=== PATIENT | female | born 1995 | race Caucasian/White ===

== ENCOUNTER 2020-12-04 18:38 | Emergency (ER) | payer OTHER, SELFPAY ==
[2020-12-04 18:55] VITALS: BP 114/79; PULSE 85; RESP 18; TEMP 36.8; O2SAT 97; BMI 26.4
--- NOTE | 2020-12-04 18:59 | XRR_ITS ---
PROCEDURE INFORMATION: Exam: XR Right Ribs with PA Chest Exam date and time: 12/04/2020 7:09 PM Age: 24 years old Clinical indication: Pain; Other: Right ribs TECHNIQUE: Imaging protocol: XR Right ribs with PA chest. Views: 3 views COMPARISON: No relevant prior studies available. FINDINGS: Lungs: Unremarkable. No consolidation. Pleural spaces: Unremarkable. No pleural effusion. No pneumothorax. Heart/Mediastinum: Unremarkable. No cardiomegaly. Bones/joints: Unremarkable. XR/XR ribs RT mn 3V w CXR1V [id number] IMPRESSION: No acute findings.
--- NOTE | 2020-12-04 19:43 | US_ITS ---
WS: [id number] RIGHT UPPER QUADRANT ULTRASOUND HISTORY: Abdominal pain. COMPARISON: None available. Liver: 14.2 cm in length. Normal size liver. No bile duct dilatation or mass. Gallbladder: Normally distended gallbladder with no stones or wall thickening. CBD: 0.2 cm Pancreas: Not visualized. Right kidney: 11.1 cm in length. Normal size kidney. There is very mild dilatation of the renal pelvi s. No calyceal dilatation. No mass. Aorta and IVC: Unremarkable abdominal aorta and IVC. No ascites. US/US gall bladder [id number] IMPRESSION: 1. Normal gallbladder. 2. Very mild RIGHT hydronephrosis. Correlate for possible minimal obstruction secondary to a ureteral stone.
--- NOTE | 2020-12-04 19:45 | W.ED.ABDPA2 ---
HPI - Abdominal Pain General: Chief Complaint: Abdominal Pain Stated Complaint: Pain Underneath R. Rib Area Time Seen by Provider: 12/04/20 19:21 Source: patient Mode of arrival: ambulatory Limitations: no limitations History of Present Illness: HPI narrative: 24-year-old female states that she is currently 17 weeks . She states that she is having right upper quadrant abdominal pain that is sharp in nature. States is also in the epigastric region as well. States this happened after eating today around 3. States pain is currently 5 out of 10. Denies any shortness of breath. She denies any vaginal bleeding or vaginal discharge. This is her first . She has had a appendectomy in the past and still has her gallbladder. Associated Symptoms: Denies chills, dysuria and fever(s) Review of Systems Const: Denies: fever(s), chills, body aches or change in appetite Eyes: Denies: blurry vision or eye discomfort ENMT: Denies: throat pain or dental pain Card: Denies: chest pain Resp: Denies: dyspnea GI: Reports: abdominal pain : Denies: dysuria Musc: Denies: neck pain or back pain Skin/Breast: Denies: rash Neuro: Denies: headache(s) Psych: Denies: depression Rolly/Lymph: Denies: easy bruising All/Imm: Denies: urticaria Physical Exam Const: COMMON NORMALS: no acute distress, patient oriented x3 and healthy appearing HENMT: COMMON NORMALS: normocephalic and atraumatic HEAD & SCALP: normocephalic and atraumatic Eye: COMMON NORMALS: Equal, round and reactive pupils present and EOMs intact bilaterally PUPIL: Yes Equal, round and reactive pupils present Neck/C-Spine: COMMON NORMALS: full ROM and supple Chest: COMMONS NORMALS: normal inspection of the chest and normal palpation of entire chest wall Resp: COMMON NORMALS: normal respiratory effort, No retractions, No use of accessory muscles and clear to auscultation bilaterally AUSCULTATION: clear to auscultation bilaterally Cardio: COMMON NORMALS: regular rate, regular rhythm and No murmurs present (Cardio) RATE: regular rate RHYTHM: regular rhythm GI: COMMON NORMALS: Normal to inspection, nondistended, normoactive bowel sounds present, Soft to palpation, non-tender and no masses PALPATION: Yes Soft to palpation Extremity: COMMON NORMALS: normal to inspection and full ROM Neuro: COMMON NORMALS: patient oriented x3, moves all extremities and no focal motor deficits Psych: COMMON NORMALS: mental status grossly normal, Normal thought process present and cooperative THOUGHT PROCESS: Normal thought process present Skin: COMMON NORMALS: no rashes or lesions noted and no wounds GENERAL SKIN EXAM: no rashes or lesions noted Course Vital Signs: Vital signs: Vital Signs Temperature 98.3 F 12/04/20 18:55 Pulse Rate 76 12/04/20 20:10 Respiratory Rate 18 12/04/20 20:10 Blood Pressure 113/52 12/04/20 20:10 Pulse Oximetry 96 12/04/20 20:10 MDM - Abdominal Pain MDM Narrative: Medical decision making narrative: Patient presents with abdominal pain likely gastritis. Gallbladder ultrasound here is normal and her blood work is all normal. I did a bedside ultrasound of her lower abdomen showed an IUP consistent with dates with heart rate of 146. She feel improved after Reglan will place her on Reglan at home. She is to follow-up with her OB and return if worsening. She understands agrees to plan. Lab Data: Labs: Lab Results 12/04/20 12/04/20 Range/Units 19:52 19:52 WBC 13.5 H (4.0-10.0) 10^3/ uL RBC 4.36 (4.1-5.3) 10^6/u L Hgb 13.3 (11.5-15.3) g/dL Hct 39.7 (37.0-47.0) % MCV 91.1 (81-99) fL MCH 30.5 (28.0-34.0) pg MCHC 33.5 (30.0-36.0) g/dL RDW 13.5 (12.1-15.1) % Plt Count 258 (130-400) 10^3/c mm MPV 10.9 H (7.4-10.4) fL Neut % (Auto) 67.7 % Lymph % (Auto) 22.2 % [place] % (Auto) 7.9 % Eos % (Auto) 1.1 % Baso % (Auto) 0.4 % Neut # (Auto) 9.11 H (1.8-7.7) 10^3/u L Lymph # (Auto) 3.0 (0.8-4.8) 10^3/u L [place] # (Auto) 1.1 H (0.2-0.9) 10^3/u L Eos # (Auto) 0.2 (0.0-0.8) 10^3/u L Baso # (Auto) 0.1 (0.0-0.1) 10^3/u L Nucleated RBC % (a uto) 0 % Nucleated RBCs # 0.0 /100WBC Sodium 135 L (136-145) mmol/L Potassium 3.6 (3.5-5.1) mmol/L Chloride 102 (98-107) mmol/L Carbon Dioxide 22 (22-29) mmol/L Anion Gap 14.6 (5-19) BUN 7 (6-20) mg/dL Creatinine 0.4 L (0.5-0.9) mg/dL GFR Calculation 197.8 H (90-130) mL/min Glucose 93 (65-115) mg/dL Calculated Osmolal ity 278 L (285-295) mOsm/k g Calcium 8.3 L (8.5-10.5) mg/dL Total Bilirubin 0.2 (0.15-1.2) mg/dL AST 34 H (0-32) U/L ALT 73 H (0-33) U/L Alkaline Phosphata se 59 (35-105) IU/L Total Protein 6.7 (6.6-8.7) g/dL Albumin 3.9 (3.5-5.2) g/dL Globulin 2.8 (1.3-4.6) g/dL Lipase 28 (13-60) U/L Imaging Data ^: US: Attestation: I personally reviewed and interpreted this imaging study as follows: My impression: No acute abnormality Discharge Plan Discharge Patient Disposition: Home Clinical Impression: Abdominal pain affecting Condition: Stable Prescriptions: New Reglan 10 mg tablet 10 mg PO Q6H PRN (Reason: nausea and vomiting) Qty: 20 RF: 0 No Action 1 tab PO DAILY RF: 0 Discharge Orders: Discharge ED (Routine); Ordered 12/04/20 Ordered By: Brenda Fuentes Referrals: Dacia Gregg MD [Primary Care Provider] - 1-3 days Discharge Diet: Advance as tolerated Discharge Activity: Resume usual activity Patient Instructions: Abdominal Pain (ED) Coding Level of Care Code ED Low Voltage Electrician for Chg Fwd Exam Comprehensive
[2020-12-04 19:57] LABS: Basophils # 0.1 10^3/uL (0.0-0.1); Basophils % 0.4 %; Eosinophils # 0.2 10^3/uL (0.0-0.8); Eosinophils % 1.1 %; Hematocrit 39.7 % (37.0-47.0); Hemoglobin 13.3 g/dL (11.5-15.3); Lymphocytes % 22.2 %; Mean Corpuscular HGB Conc 33.5 g/dL (30.0-36.0); Mean Corpuscular Hemoglobin 30.5 pg (28.0-34.0); Mean Corpuscular Volume 91.1 fL (81-99); Mean Platelet Volume 10.9 fL (7.4-10.4); Monocytes # 1.1 10^3/uL (0.2-0.9); Monocytes % 7.9 %; Neutrophils # 9.11 10^3/uL (1.8-7.7); Neutrophils % 67.7 %; Nucleated Red Blood Cells % 0 %; Platelet Count 258 10^3/cmm (130-400); Red Blood Count 4.36 10^6/uL (4.1-5.3); Red Cell Distribution Width 13.5 % (12.1-15.1); White Blood Count 13.5 10^3/uL (4.0-10.0)
[2020-12-04] MEDS: sodium chloride 0.9% 1,000 ML 999 ML IV (19:57)
[2020-12-04] MEDS: metoclopramide 5 mg/mL SDV 2 mL 10 MG IVP (19:59)
[2020-12-04] MEDS: diphenhydrAMINE 50 mg/mL SDV 1mL IVP (20:09)
[2020-12-04 20:10] VITALS: BP 113/52; PULSE 76; RESP 18; O2SAT 96
[2020-12-04 20:17] LABS: Alanine Aminotransferase 73 U/L (0-33); Albumin Level 3.9 g/dL (3.5-5.2); Alkaline Phosphatase 59 IU/L (35-105); Anion Gap 14.6 (5-19); Aspartate Amino Transferase 34 U/L (0-32); Blood Urea Nitrogen 7 mg/dL (6-20); Calcium 8.3 mg/dL (8.5-10.5); Carbon Dioxide 22 mmol/L (22-29); Chloride 102 mmol/L (98-107); Globulin 2.8 g/dL (1.3-4.6); Glomerular Filtration Rate 197.8 mL/min (90-130); Glucose 93 mg/dL (65-115); Lipase 28 U/L (13-60); Osmolality Calculated 278 mOsm/kg (285-295); Potassium 3.6 mmol/L (3.5-5.1); Sodium 135 mmol/L (136-145); Total Bilirubin 0.2 mg/dL (0.15-1.2); Total Protein 6.7 g/dL (6.6-8.7)
[2020-12-04 21:01] VITALS: BP 106/61; PULSE 80; RESP 17; O2SAT 98
== END 2020-12-04 21:01 | disposition home or self-care (01) ==
PROVIDERS: Emergency Provider Emergency Medicine; PCP Family Medicine
DX: O26.892 Other specified pregnancy related conditions, second trimester (principal); R10.9 Unspecified abdominal pain; Z3A.17 17 weeks gestation of pregnancy
CPT/HCPCS: 71101; 76705; 80053; 83690; 85025; 96361; 96374; 96375; 99283; J1200; J2765; J7030

== ENCOUNTER 2021-04-22 20:06 | Inpatient (IN) | payer OTHER, SELFPAY ==
[2021-04-22] VITALS (7 sets, daily range): BP systolic 122–141; BP diastolic 60–92; PULSE 68–95; RESP 17–18; BMI 33.3
[2021-04-22 18:46] LABS: Nitrazine Paper, PH Negative
[2021-04-22 20:26] LABS: Basophils % 0.2 %; Eosinophils # 0.1 10^3/uL (0.0-0.8); Eosinophils % 0.9 %; Hematocrit 36.8 % (37.0-47.0); Hemoglobin 12.1 g/dL (11.5-15.3); Lymphocytes # 2.6 10^3/uL (0.8-4.8); Lymphocytes % 18.7 %; Mean Corpuscular HGB Conc 32.9 g/dL (30.0-36.0); Mean Corpuscular Hemoglobin 30.3 pg (28.0-34.0); Mean Platelet Volume 12.2 fL (7.4-10.4); Monocytes # 1.2 10^3/uL (0.2-0.9); Monocytes % 8.4 %; Neutrophils # 9.96 10^3/uL (1.8-7.7); Neutrophils % 70.6 %; Nucleated Red Blood Cells % 0 %; Platelet Count 224 10^3/cmm (130-400); Red Cell Distribution Width 13.6 % (12.1-15.1); White Blood Count 14.1 10^3/uL (4.0-10.0)
[2021-04-23] VITALS (46 sets, daily range): BP systolic 98–140; BP diastolic 42–94; PULSE 49–110; RESP 17; TEMP 36.6
[2021-04-23] MEDS: dextrose 5%-lactated ringers 1,000 ML 125 ML IV ×2 (06:06→13:52)
[2021-04-23] MEDS: acetaminophen 325 mg Tablet 650 MG PO ×2 (06:12→19:04)
[2021-04-23] MEDS: oxytocin 30 UNIT/500 ML BAG IV (08:05)
[2021-04-23] MEDS: fentaNYL 50 mcg/mL INJ 2mL IVP (13:20)
[2021-04-23] MEDS: lidocaine 2% INJ 20 mL INJECTION ×2 (16:00)
--- NOTE | 2021-04-23 16:14 | PM.OPHPUD ---
Labor & Delivery H&P Update Date of Procedure: April 23, 2021 Date H&P Performed: 04/22/21 Admission Diagnosis: Related Problem List Diagnoses (1) Active labor at term:
--- NOTE | 2021-04-23 16:15 | P.PCNOB_ITS ---
Delivery Note: Date of delivery: April 23, 2021 Delivery: This is a 25-year-old G1, P0 at 37 weeks 3 days gestation who presented to labor and delivery in active labor. She had been having regular contractions overnight. When she was checked in clinic she was 3-4/70% effaced with a bulging bag of water. When she presented to labor and delivery 7 hours later she was a good 4/70% effaced/-3 station. She was rechecked after about 1 to 2 hours and was noted to be 4-5 cm 75% effaced and -3 station. She was admitted for expectant management. She declined an epidural for pain management. She progressed very slowly overnight and her labor seemed to stall out around 6 cm 80% effacement. She was then started on Pitocin to help augment labor. She underwent artificial rupture of membranes with clear fluid. She had a normal spontaneous vaginal delivery of a viable female infant weight 6 pounds 3 ounces, 2810 g over an intact perineum. The was suctioned at delivery and placed on the mother's chest. The cord was clamped and cut. Apgars were 8 and 9. The placenta was then delivered grossly intact and normal to inspection. There was a first-degree perineal laceration that was sutured using 3-0 chromic. Mother and infant were doing well after delivery. Estimated blood loss 275 mL. A&P Assessment and plan (1) (normal spontaneous vaginal delivery): Status: Acute Coding Level of Care Code Acute Cloth Napping Supervisor for Chg Fwd Diagnoses (normal spontaneous vaginal delivery) O80
[2021-04-23] MEDS: ketorolac 30 mg/mL INJ IVP (16:23)
[2021-04-23] MEDS: benzocaine-menthol 78 gm Canister 1 SPRAY TOPICAL (19:05)
[2021-04-23] MEDS: lanolin oint 7 gm 1 APPLIC TOPICAL (19:05)
[2021-04-23] MEDS: ibuprofen 800 mg tablet PO (21:26)
[2021-04-24] MEDS: acetaminophen 325 mg Tablet 650 MG PO (01:15)
[2021-04-24 01:59] VITALS: BP 106/55; PULSE 72; TEMP 36.3
[2021-04-24 04:14] LABS: Hematocrit 31.7 % (37.0-47.0); Hemoglobin 10.3 g/dL (11.5-15.3); Mean Corpuscular HGB Conc 32.5 g/dL (30.0-36.0); Mean Corpuscular Hemoglobin 30.1 pg (28.0-34.0); Mean Corpuscular Volume 92.7 fl (81-99); Mean Platelet Volume 11.6 fL (7.4-10.4); Platelet Count 199 10^3/cmm (130-400); Red Blood Count 3.42 10^6/uL (4.1-5.3); Red Cell Distribution Width 13.7 % (12.1-15.1); White Blood Count 15.7 10^3/uL (4.0-10.0)
[2021-04-24 05:03] VITALS: BP 119/57; PULSE 85; TEMP 36.2
[2021-04-24] MEDS: ibuprofen 800 mg tablet PO ×2 (08:29→14:06)
[2021-04-24] MEDS: docusate sodium 100 mg Capsule PO (08:29)
[2021-04-24] MEDS: prenatal vitamin Capsule 1 CAP PO (08:29)
[2021-04-24 10:08] VITALS: BP 111/62; PULSE 76
--- NOTE | 2021-04-24 16:38 | PM.OBGYDC ---
Discharge Providers CUSTOMS PATROL OFFICER Date of Admission: 04/22/21 20:06 Date of Discharge: 04/24/21 Attending Provider at Admission: Dacia Gregg MD Attending Provider at Discharge: Dacia Gregg MD Primary Care Provider: Dacia Gregg MD Diagnoses at Discharge Discharge Diagnosis (1) (normal spontaneous vaginal delivery): Status: Acute Reason for Visit Reason for Visit: vaginal bleeding Hospital Course Hospital Course <del>The</del> <del>patient</del> <del>did</del> <del>well</del> <del>.</del> <del>She</del> <del>was</del> <del>ambulating,</del> <del>tolerating</del> <del>a</del> <del>regular</del> <del>diet,</del> <del>had</del> <del>good</del> <del>pain</del> <del>control.</del> <del>Her</del> <del>vaginal</del> <del>bleeding</del> <del>was</del> <del>average.</del> <del>She</del> <del>was</del> <del>eager</del> <del>to</del> <del>be</del> <del>discharged</del> <del>home.</del> Information Peripartum Data: Delivery Method: Vaginal Physical Exam Narrative: EXAM NARRATIVE: Alert and oriented, no acute distress. Heart regular rate and rhythm, lungs clear to auscultation bilaterally. Abdomen soft with fundus firm and nontender. 2+ nonpitting edema no calf tenderness. Discharge Data Data Completed and Pending: Labs from last 24 hours 04/24/21 04:08 WBC 15.7 H RBC 3.42 L Hgb 10.3 L Hct 31.7 L MCV 92.7 MCH 30.1 MCHC 32.5 RDW 13.7 Plt Count 199 MPV 11.6 H Vitals: Last Vital Signs Temp 97.2 F L 04/24/21 05:03 Pulse 76 04/24/21 10:08 Resp 17 04/23/21 18:22 BP 111/62 04/24/21 10:08 Discharge Plan Discharge Patient Disposition: Home Condition: Stable Prescriptions: No Action 1 tab PO DAILY RF: 0 Reglan 10 mg tablet 10 mg PO Q6H PRN (Reason: nausea and vomiting) Qty: 20 RF: 0 Discharge Orders: Discharge Order (Routine); Ordered 04/24/21 Ordered By: Dacia Gregg Referrals: Dacia Gregg MD [Primary Care Provider] - 1 month Discharge Diet: Usual diet Discharge Activity: Limit activity as instructed Patient Instructions: Perineal Care (DC), Vaginal Delivery (DC), Bleeding (DC), OB Discharge Report, OB Food/Drug Interaction Guide, Opioid Safety, OB Proud Parent Packet, OB Vaginal Deliveries, Abnormal Bleeding, Depression Discharge Attestations CUSTOMS PATROL OFFICER Time Spent in Discharge Care*: less than 30 min Coding Level of Care Code Acute Sinter Machine Operator for Chg Fwd Diagnoses (normal spontaneous vaginal delivery) O80
[2021-04-24 17:17] VITALS: BP 126/63; PULSE 101; TEMP 35.4
== END 2021-04-24 17:52 | disposition home or self-care (01) | DRG 807 ==
LOC: OPOB 20:06 → OBGYN 20:06
PROVIDERS: Admitting Provider Family Medicine; PCP Family Medicine; Visit Provider Family Medicine
DX: O70.0 First degree perineal laceration during delivery (principal); Z37.0 Single live birth; Z3A.37 37 weeks gestation of pregnancy
CPT/HCPCS: 36415; 59025; 59409; 83986; 85025; 85027; 96374; 98960; 99211; J1885; J3010

== ENCOUNTER 2023-03-03 00:29 | Inpatient (IN) | payer OTHER, SELFPAY ==
[2023-03-02 22:30] VITALS: BP 125/72; PULSE 76
[2023-03-02 23:27] VITALS: RESP 16; BMI 33.3
[2023-03-03] VITALS (45 sets, daily range): BP systolic 85–142; BP diastolic 49–101; PULSE 63–90; RESP 16–18; TEMP 36.2–36.8; O2SAT 99
[2023-03-03 00:45] LABS: Basophils % 0.1 %; Eosinophils # 0.1 10^3/uL (0.0-0.8); Eosinophils % 0.5 %; Hematocrit 39.1 % (37.0-47.0); Hemoglobin 12.7 g/dL (11.5-15.3); Lymphocytes # 2.8 10^3/uL (0.8-4.8); Lymphocytes % 17.9 %; Mean Corpuscular HGB Conc 32.5 g/dL (30.0-36.0); Mean Corpuscular Hemoglobin 29.4 pg (28.0-34.0); Mean Corpuscular Volume 90.5 fl (81-99); Mean Platelet Volume 11.6 fL (7.4-10.4); Monocytes % 6.5 %; Neutrophils # 11.49 10^3/uL (1.8-7.7); Neutrophils % 73.9 %; Nucleated Red Blood Cells % 0 %; Platelet Count 221 10^3/cmm (130-400); Red Blood Count 4.32 10^6/uL (4.1-5.3); Red Cell Distribution Width 14.5 % (12.1-15.1); White Blood Count 15.6 10^3/uL (4.0-10.0)
[2023-03-03] MEDS: fentaNYL 50 mcg/mL INJ 2mL IVP ×5 (04:32→16:05)
[2023-03-03] MEDS: lactated ringers 1,000 ML 125 ML IV (11:08)
--- NOTE | 2023-03-03 19:29 | PM.OPHPUD ---
Labor & Delivery H&P Update Date of Procedure: March 03, 2023 Date H&P Performed: 03/02/23 Admission Diagnosis: at 37w6d Planned procedure: Expectant management of labor and delivery
[2023-03-03] MEDS: dextrose 5%-lactated ringers 1,000 ML 125 ML IV (19:30)
[2023-03-03] MEDS: oxytocin 30 UNIT/500 ML BAG 600 UNIT IV (21:14)
[2023-03-03] MEDS: HYDROcodone-acetaminophen 5-325 mg Tablet PO (22:18)
[2023-03-03] MEDS: ibuprofen 800 mg tablet PO (22:58)
[2023-03-03] MEDS: benzocaine-menthol 78 gm Canister 1 SPRAY TOPICAL (23:46)
[2023-03-04] VITALS (9 sets, daily range): BP systolic 99–121; BP diastolic 59–83; PULSE 66–97; RESP 15–18; TEMP 36.6–36.9; O2SAT 97–98
--- NOTE | 2023-03-04 00:42 | PC.NURSE ---
Pitocin was started on 03-03-23 @[address] Gregg, Pitocin was turned of per pt request @2036 on 03-03-23, Pitocin was turned back on on 03-03-23 @2044 to 4ml.
[2023-03-04] MEDS: miSOPROStol 200 mcg Tablet 800 MCG PR (01:08)
--- NOTE | 2023-03-04 01:16 | PC.NURSE ---
This nurse weighed pad and chucks under pt and so far has a total of 595 blood loss, this nurse called Dr. Gregg on 03-04-23 @0102 and received orders to do cytotec 800mcg rectally.
[2023-03-04] MEDS: acetaminophen 325 mg Tablet 650 MG PO ×3 (05:38→22:13)
[2023-03-04] MEDS: ibuprofen 800 mg tablet PO ×3 (09:17→20:54)
[2023-03-04] MEDS: prenatal vitamin Capsule 1 CAP PO (09:18)
[2023-03-04] MEDS: docusate sodium 100 mg Capsule PO ×2 (09:18→18:38)
[2023-03-04 10:09] LABS: Hematocrit 33.7 % (37.0-47.0); Mean Corpuscular HGB Conc 32.6 g/dL (30.0-36.0); Mean Corpuscular Hemoglobin 29.5 pg (28.0-34.0); Mean Corpuscular Volume 90.3 fl (81-99); Mean Platelet Volume 12.1 fL (7.4-10.4); Platelet Count 223 10^3/cmm (130-400); Red Blood Count 3.73 10^6/uL (4.1-5.3); Red Cell Distribution Width 14.5 % (12.1-15.1); White Blood Count 19.1 10^3/uL (4.0-10.0)
--- NOTE | 2023-03-04 16:19 | P.PCNOB_ITS ---
Delivery Note: Date of delivery: March 03, 2023 Estimated blood loss (mL): 200 Pre-Delivery Course: The patient had routine care at [facility]. Blood type a positive, antibody negative, hepatitis B nonreactive, hepatitis C nonreactive, HIV nonreactive, rubella immune, RPR nonreactive, GC chlamydia negative, UDS negative, she passed her glucose tolerance test, she was GBS negative Delivery: This is a 27-year-old at 37 weeks 6 days gestation who presented to labor and delivery in active labor. She declined an epidural for pain management but she got a couple doses of fentanyl. When she was 4 to 5 cm dilated her contractions began to space out so her labor was augmented using Pitocin. When she was 9 cm dilated she underwent artificial rupture of membranes with clear fluid. It was another 2 hours before she delivered via normal spontaneous vaginal delivery of viable female infant weight 2850 g, 6 pounds 5 ounces, Apgars 8 and 9 over an intact perineum. The infant was suctioned at delivery and placed on the mother's chest. The cord was clamped and cut. The placenta was delivered grossly intact and normal to inspection. There was a second-degree perineal laceration that was sutured using 3-0 chromic. Mother and infant were doing well after delivery. Coding Level of Care Code Acute Code for Chg Fwd Diagnoses
--- NOTE | 2023-03-04 16:39 | P.DS_ITS ---
Discharge Providers Date of Admission: 03/03/23 00:29 Date of Discharge: March 04, 2023 Attending Provider at Admission: Dacia Gregg MD Attending Provider at Discharge: Dacia Gregg MD Primary Care Provider: Dacia Gregg MD Reason for Visit Reason for Visit: contractions Hospital Course Hospital Course This is a 27-year-old G2 now P2 who had a normal spontaneous vaginal delivery of a viable female infant at 37 weeks 6 days gestation. A couple hours after delivery mother had an increase in her bleeding and she was given 800 mcg of Cytotec with excellent result. She has been ambulating, tolerating a regular diet, has no abdominal tenderness and is requesting discharge home. Physical Exam Narrative: Resting in bed, easily arousable, heart regular rate and rhythm, lungs clear to auscultation bilaterally, abdomen is soft and nontender, fundus is firm and U - 2, extremities have some edema but no calf tenderness Discharge Data Studies Completed and Pending Laboratory Results WBC 19.1 10^3/uL (4.0-10.0) H 03/04/23 09:19 RBC 3.73 10^6/uL (4.1-5.3) L 03/04/23 09:19 Hgb 11.0 g/dL (11.5-15.3) L 03/04/23 09:19 Hct 33.7 % (37.0-47.0) L 03/04/23 09:19 MCV 90.3 fl (81-99) 03/04/23 09:19 MCH 29.5 pg (28.0-34.0) 03/04/23 09:19 MCHC 32.6 g/dL (30.0-36.0) 03/04/23 09:19 RDW 14.5 % (12.1-15.1) 03/04/23 09:19 Plt Count 223 10^3/cmm (130-400) 03/04/23 09:19 MPV 12.1 fL (7.4-10.4) H 03/04/23 09:19 Neut % (Auto) 73.9 % 03/03/23 00:25 Lymph % (Auto) 17.9 % 03/03/23 00:25 [place] % (Auto) 6.5 % 03/03/23 00:25 Eos % (Auto) 0.5 % 03/03/23 00:25 Baso % (Auto) 0.1 % 03/03/23 00:25 Neut # (Auto) 11.49 10^3/uL (1.8-7.7) H 03/03/23 00:25 Lymph # (Auto) 2.8 10^3/uL (0.8-4.8) 03/03/23 00:25 [place] # (Auto) 1.0 10^3/uL (0.2-0.9) H 03/03/23 00:25 Eos # (Auto) 0.1 10^3/uL (0.0-0.8) 03/03/23 00:25 Baso # (Auto) 0.0 10^3/uL (0.0-0.1) 03/03/23 00:25 Nucleated RBC % (auto) 0 % 03/03/23 00:25 Nucleated RBCs # 0.0 /100WBC 03/03/23 00:25 Vitals Last Vital Signs Temp 98.0 F 03/04/23 15:00 Pulse 83 03/04/23 15:00 Resp 18 03/04/23 15:00 BP 105/70 03/04/23 15:00 Pulse Ox 97 03/04/23 15:00 O2 Del Method Room Air 03/04/23 15:00 Discharge Plan Discharge Patient Disposition: Home Condition: Stable Prescriptions: Continued 1 tab PO DAILY Discharge Orders: Discharge Order (Routine); Ordered 03/04/23 Ordered By: Dacia Gregg Referrals: Dacia Gregg MD [Primary Care Provider] - 1 month Discharge Diet: Usual diet Discharge Activity: Limit activity as instructed Discharge Attestations Time Spent in Discharge Care*: less than 30 min Quality Metrics Clinical Quality Measures [ No reported AMI, CVA or VTE this stay] Coding Level of Care Code Acute Code for Chg Fwd Diagnoses
[2023-03-04] MEDS: HYDROcodone-acetaminophen 5-325 mg Tablet PO (18:38)
== END 2023-03-04 23:10 | disposition home or self-care (01) | DRG 807 ==
LOC: OPOB 00:30 → OBGYN 00:30
PROVIDERS: Admitting Provider Family Medicine; PCP Family Medicine; Visit Provider Family Medicine
DX: O70.1 Second degree perineal laceration during delivery (principal); Z37.0 Single live birth; Z3A.37 37 weeks gestation of pregnancy
CPT/HCPCS: 36415; 59025; 59409; 85025; 85027; 96374; 96376; 99211; J2590; J3010; J7040; J7120; J7121